=== PATIENT | female | born 1990 | race African-American/Black ===

== ENCOUNTER 2017-03-25 20:32 | Emergency (ER) | payer OTHER ==
[2017-03-25 20:36] VITALS: BP 138/72; PULSE 137; RESP 16; TEMP 98.2; O2SAT 99
[2017-03-25] MEDS ORDERED: SODIUM CHLOR 0.9% 1000 ML INJ 1,000 ML IV ONE (20:41)
[2017-03-25] MEDS ORDERED: SODIUM CHLOR 0.9% 1000 ML INJ 1,000 ML IV SCH (20:41)
[2017-03-25 20:43] VITALS: O2SAT 98
[2017-03-25] MEDS ORDERED: ONDANSETRON HCL 4 MG/2 ML VIAL IVP ONE (20:45)
[2017-03-25] MEDS ORDERED: SODIUM CHLORIDE 0.9% FLUSH 10 ML FLUSH IVF PRN (20:45)
--- NOTE | 2017-03-25 20:51 | PD ---
HPI Chief Complaint: OD/ Ingestion Time Seen by Provider: 20:39 Travel History International Travel<30 days: No Contact w/Intl Traveler<30days: No Traveled to known affect area: No History of Present Illness HPI 26-year-old female presents via EMS for evaluation of drug use. Prior to arrival the patient reportedly snorted some heroin at her apartment. Her children found her in the bathroom lethargic. When paramedics arrived she was responsive but somewhat drowsy, vomiting in her bathtub. She was tachycardic with a heart rate of 140. No Narcan or other medication was administered. She is currently complaining of anxiety in regards to the situation. She reports that she snorted what she believed to be heroin. She denies any headache, blurred vision, nausea, chest pain or shortness of breath, abdominal pain. The police have escorted her here, she is reportedly going to shelter when she is discharged. PFSH Past Medical History Medical History: Denies Significant Hx Diminished Hearing: No ?: Not LMP: 03/22/17 : 2 Para: 2 Miscarriage: 0 : 0 Past Surgical History Abdominal Surgery: Yes ( X 2) Section: Yes Social History Alcohol Use: Yes (OCC) Tobacco Use: Yes Substance Use: Yes (HEROIN) Allergies-Medications (Allergen,Severity, Reaction): Coded Allergies: No Known Allergies (Verified , 03/25/17) Uncoded Allergies: CLINDAMAX VAGINAL CREAM (Allergy, Severe, SORES, 02/13/08) Reported Meds & Prescriptions Reported Meds & Active Scripts Active Potassium Chloride ER (Potassium Chloride) 20 Meq Tab 20 Meq PO BID 3 Days Review of Systems Except as stated in HPI: all other systems reviewed are Neg Physical Exam Narrative GENERAL: Well-developed well-nourished female, awake and alert, anxious. SKIN: Warm and dry. HEAD: Atraumatic. Normocephalic. EYES: Pupils equal and round, pinpoint. ENT: No nasal bleeding or discharge. Mucous membranes pink and moist. NECK: Trachea midline. No JVD. CARDIOVASCULAR: Regular rate and rhythm. No murmur appreciated. RESPIRATORY: No accessory muscle use. Clear to auscultation. Breath sounds equal bilaterally. GASTROINTESTINAL: Abdomen soft, non-tender, nondistended. Hepatic and splenic margins not palpable. MUSCULOSKELETAL: No obvious deformities. No clubbing. No cyanosis. No edema. NEUROLOGICAL: Awake and alert. No obvious cranial nerve deficits. Motor grossly within normal limits. Normal speech. PSYCHIATRIC: Anxious, awake, alert. Data Data Last Documented VS Vital Signs Date Time Temp Pulse Resp B/P Pulse Ox O2 Delivery O2 Flow Rate FiO2 03/25/17 20:43 98 Room Air 03/25/17 20:42 126 03/25/17 20:36 98.2 16 138/72 Orders Electrocardiogram (03/25/17 20:41) Complete Blood Count With Diff (03/25/17 20:41) Comprehensive Metabolic Panel (03/25/17 20:41) Iv Access Insert/Monitor (03/25/17 20:41) Ecg Monitoring (03/25/17 20:41) Oximetry (03/25/17 20:41) Sodium Chloride 0.9% Flush (Ns Flush) (03/25/17 20:45) Sodium Chlor 0.9% 1000 Ml Inj (Ns 1000 M (03/25/17 20:41) Drug Screen, Random Urine (03/25/17 20:41) Ondansetron Inj (Zofran Inj) (03/25/17 20:45) Sodium Chlor 0.9% 1000 Ml Inj (Ns 1000 M (03/25/17 20:41) Ed Urine Pregnancytest Poc (03/25/17 20:41) Potassium Chloride (Kcl) (03/25/17 21:45) Labs Laboratory Tests Test 03/25/17 20:50 White Blood Count 13.3 TH/MM3 Red Blood Count 3.68 MIL/MM3 Hemoglobin 9.0 GM/DL Hematocrit 28.3 % Mean Corpuscular Volume 77.0 FL Mean Corpuscular Hemoglobin 24.4 PG Mean Corpuscular Hemoglobin 31.7 % Concent Red Cell Distribution Width 19.3 % Platelet Count 368 TH/MM3 Mean Platelet Volume 8.6 FL Neutrophils (%) (Auto) 52.9 % Lymphocytes (%) (Auto) 35.0 % Monocytes (%) (Auto) 8.4 % Eosinophils (%) (Auto) 3.0 % Basophils (%) (Auto) 0.7 % Neutrophils # (Auto) 7.0 TH/MM3 Lymphocytes # (Auto) 4.7 TH/MM3 Monocytes # (Auto) 1.1 TH/MM3 Eosinophils # (Auto) 0.4 TH/MM3 Basophils # (Auto) 0.1 TH/MM3 CBC Comment DIFF FINAL Differential Comment Sodium Level 136 MEQ/L Potassium Level 3.0 MEQ/L Chloride Level 103 MEQ/L Carbon Dioxide Level 22.1 MEQ/L Anion Gap 11 MEQ/L Blood Urea Nitrogen 11 MG/DL Creatinine 0.99 MG/DL Estimat Glomerular Filtration 81 ML/MIN Rate Random Glucose 130 MG/DL Calcium Level 8.5 MG/DL Total Bilirubin 0.2 MG/DL Aspartate Amino Transf 22 U/L (AST/SGOT) Alanine Aminotransferase 19 U/L (ALT/SGPT) Alkaline Phosphatase 79 U/L Total Protein 7.8 GM/DL Albumin 3.6 GM/DL [facility] Medical Decision Making Medical Screen Exam Complete: Yes Emergency Medical Condition: Yes Medical Record Reviewed: Yes Interpretation(s) EKG sinus tachycardia Differential Diagnosis Methamphetamine abuse, cocaine abuse, heroin abuse, anxiety, electrolyte abnormality, arrhythmia, dehydration Narrative Course 26-year-old female presents after being found by her children shortly after she started what she believed to be heroin. On examination she is awake, alert, anxious, tachycardic with a heart rate of 140. She is answering questions appropriately. Likely her heroin was mixed with cocaine or amphetamines with resultant tachycardia. Plan is for basic lab work, EKG, ECG monitoring. She will be given IV fluids and Zofran. Test results have been reviewed. Hemoglobin is 9.0 which is consistent with her previous hemoglobins on record. CMP reveals potassium 3.0 otherwise unremarkable. The patient be given 40 mEq orally and she'll be discharged with 3 days of 20 mEq potassium chloride bid. The police have informed that charges have been dropped. The patient's heart rate has improved to 100. Diagnosis Primary Impression: Substance abuse Additional Impression: Hypokalemia Additional Instructions: Medication as prescribed. Avoid illicit substances. Return for any emergent medical conditions. Med/Other Pt SpecificInfo: Prescription(s) given Scripts Potassium Chloride ER 20 Meq Tab20 Meq PO BID 3 Days Ref 0 Prov:Donnie Desir MD 03/25/17 Disposition: 01 DISCHARGE HOME Condition: Stable Chu Anderson Mar 25, 2017 20:51
[2017-03-25 21:16] LABS: BASOPHIL # 0.1 TH/MM3 (0-0.2); BASOPHIL % 0.7 % (0.0-2.0); EOSINOPHIL # 0.4 TH/MM3 (0-0.4); HEMATOCRIT 28.3 % (35.0-46.0); HEMO FLAGS DIFF FINAL; LYMPHOCYTE # 4.7 TH/MM3 (1.0-4.8); MEAN CORPUSCULAR HEMOGLOBIN 24.4 PG (27.0-34.0); MEAN CORPUSCULAR HGB CONC 31.7 % (32.0-36.0); MONO % 8.4 % (0.0-8.0); NEUT % 52.9 % (16.0-70.0); PLATELET COUNT 368 TH/MM3 (150-450); RED BLOOD COUNT 3.68 MIL/MM3 (4.00-5.30); RED CELL DISTRIBUTION WIDTH 19.3 % (11.6-17.2); WHITE BLOOD COUNT 13.3 TH/MM3 (4.0-11.0)
[2017-03-25 21:25] LABS: ANION GAP 11 MEQ/L (5-15); AST (GOT) 22 U/L (15-37); BICARBONATE 22.1 MEQ/L (21.0-32.0); BLOOD UREA NITROGEN 11 MG/DL (7-18); CHLORIDE 103 MEQ/L (98-107); GLOMERULAR FILTRATION RATE 81 ML/MIN (>89); SODIUM (NA) 136 MEQ/L (136-145)
[2017-03-25 21:27] LABS: ALKALINE PHOSPHATASE 79 U/L (45-117); ALT (GPT) 19 U/L (10-53); TOTAL BILIRUBIN ADULT 0.2 MG/DL (0.2-1.0)
[2017-03-25] MEDS ORDERED: POTA-163 PO (21:40)
[2017-03-25] MEDS ORDERED: POTASSIUM CHLORIDE 20 MEQ CONTROLLED RELEASE TAB PO ONE (21:45)
[2017-03-25 22:03] VITALS: BP 136/70
[2017-03-25 22:41] LABS: AMPHETAMINE, URINE NEG (NEG); BARBITURATES, URINE NEG (NEG); COCAINE, URINE NEG (NEG)
--- NOTE | 2017-03-26 15:39 | EKG ---
Date Performed: 03/25/2017 Time Performed: 20:42:22 PTAGE: 26 years EKG: SINUS TACHYCARDIA NONSPECIFIC T-WAVE ABNORMALITY ABNORMAL RHYTHM ECG PREVIOUS TRACING : 07/29/2013 00.52 Compared to previous tracing, sinus rate is slower. Nonspec ific changes are new. DOCTOR: Otf Grant Interpretating Date/Time 03/26/2017 15:39:24
== END 2017-03-25 22:05 | disposition home or self-care (01) ==
LOC: NEPC 20:32
DX: F11.10 Opioid abuse, uncomplicated (principal); E87.6 Hypokalemia; R00.0 Tachycardia, unspecified
CPT/HCPCS: 80053; 80307; 84703; 85025; 93005; 96361; 96374; 99284; J2405; J7030